=== PATIENT | male | born 1985 | race Caucasian/White ===

== ENCOUNTER 2016-06-20 19:07 | Emergency (ER) ==
[2016-06-20 19:19] VITALS: BP 125/88; TEMP 97.2; BMI 21.4
[2016-06-20] MEDS ORDERED: TENIVAC IM ONE (19:23)
--- NOTE | 2016-06-20 19:26 | ED.PDOC ---
General ED Provider: Dr. АНДРЕЙ LITTLE-ER Chief Complaint: Bite Stated Complaint: was bitten by a dog on the left thigh and right forearm Time Seen by Physician: 19:24 Mode of Arrival: Walk-In Information Source: Patient Exam Limitations: No limitations Nursing and Triage Documentation Reviewed and Agree: Yes Skin Complaint Exam - Skin/Soft Tissue Complaint/Exam Onset/Duration: Symptoms Are: Still present Timing: Constant Initial Severity: Mild Current Severity: Mild Location: right forearm and left thigh Character: Reports: Raised, Painful. Denies: Redness, Swelling Aggravating: Reports: None Alleviating: Reports: None Associated Signs and Symptoms: Reports: Bruising, Tenderness Related Surgical History: Reports: None Recent Exposure to Others w/Similar Symptoms: No Skin Findings: Present: Other Joint Tenderness Present: No Differential Diagnoses: Other Review of Systems - Review Of Systems Constitutional: Reports: No symptoms Eyes: Reports: No symptoms Ears, Nose, Mouth, Throat: Reports: No symptoms Respiratory: Reports: No symptoms Cardiac: Reports: No symptoms GI: Reports: No symptoms : Reports: No symptoms Musculoskeletal: Reports: No symptoms Skin: Reports: Bruising (noted teeth nunes and puncture left thigh and right forearm) Neurological: Reports: No symptoms Endocrine: Reports: No symptoms Hematologic/Lymphatic: Reports: No symptoms All Other Systems: Reviewed and Negative Past Medical History - Past Medical History Previously Healthy: Yes Endocrine: Reports: None Cardiovascular: Reports: None Respiratory: Reports: None Hematological: Reports: None Gastrointestinal: Reports: None Genitourinary: Reports: None Neuro/Psych: Reports: None Musculoskeletal: Reports: None Cancer: Reports: None - Surgical History General Surgical History: Reports: Unknown - Family History Family History: Reports: Unknown - Social History Smoking Status: Current every day smoker, Heavy tobacco smoker Hx Substance Use: No Alcohol Screening: Occasionally Lives: With family - Immunizations Tetanus Shot up to Date: No (unsure) Physical Exam - Physical Exam Appearance: Well-appearing, No pain distress, Well-nourished Pain Distress: Mild Eyes: LUANN, EOMI, Conjunctiva clear ENT: Ears normal, Nose normal, Oropharynx normal Neck: Supple Respiratory: Airway patent, Breath sounds clear, Breath sounds equal, Respirations nonlabored Cardiovascular: RRR, Pulses normal, No rub, No murmur GI/: Soft, Nontender, No masses, Bowel sounds normal, No Organomegaly Musculoskeletal: Normal strength Skin: Warm (noted puncture wound left thigh and right foream), Dry, Normal color Neurological: Sensation intact, Motor intact, Reflexes intact, Cranial nerves intact, Alert, Oriented Psychiatric: Affect appropriate, Mood appropriate Critical Care Note - Critical Care Note Total Time (mins): 0 Course - Course Orders, Labs, Meds: Orders Category Date Time Status Wound care [ED WOUND CARE] .ONCE EMERGENCY 06/20/16 19:23 Active Tetanus and Diphtheria Tox/Pf [Tenivac] MEDS 06/20/16 19:23 Once 0.5 ml IM .ONCE ONE Medications Discontinued Medications Generic Name Dose Route Start Last Admin Trade Name Freq PRN Reason Stop Dose Admin Tetanus/Diphtheria Toxoids Adsorbed 0.5 ml 06/20/16 19:23 Tenivac IM 06/20/16 19:24 .ONCE ONE animal control notified by nursing staff Vital Signs: Temp Pulse Resp BP Pulse Ox 06/20/16 19:07 97.2 F L 95 H 18 125/88 98 Departure - Departure Time of Disposition: 19:27 Disposition: HOME SELF-CARE Discharge Problem: Dog bite Qualifiers: Encounter type: initial encounter Qualifier Code: (W54.0XXA) Bitten by dog, initial encounter Instructions: Animal Bite (ED) Condition: Good Pt referred to PMD for follow-up: Yes Additional Instructions: clean with soap and water and apply antbx ointment till healed--augmentin 875mg bid x 5 days #10--f/u wtih pcp Allergies/Adverse Reactions: Allergies No Known Allergies Allergy (Verified 06/20/16 19:18) Home Medications: Ambulatory Orders Acetaminophen [Tylenol] 650 mg PO Q6H PRN 06/25/15 Ibuprofen 800 mg PO TID PRN 06/25/15 Disposition Discussed With: Patient
== END 2016-06-20 19:40 | disposition home or self-care (01) ==
LOC: ED 19:07
DX: S71.152A Open bite, left thigh, initial encounter (principal); S51.851A Open bite of right forearm, initial encounter; W54.0XXA Bitten by dog, initial encounter; F17.210 Nicotine dependence, cigarettes, uncomplicated
CPT/HCPCS: 90471; 96372; 99282